=== PATIENT | female | born 1950 | race Caucasian/White ===

== ENCOUNTER 2018-07-25 22:30 | Emergency (ER) | payer MEDICARE, BC ==
--- NOTE | 2018-07-25 22:54 | NUR ---
1st call to triage, no answer.
--- NOTE | 2018-07-25 23:01 | NUR ---
CALLED FOR TRIAGE, NO ANSWER.
--- NOTE | 2018-07-25 23:23 | NUR ---
3RD CALL NO ANSWER. LWBT.
== END 2018-07-25 23:24 | disposition home or self-care (01) ==
LOC: ER 22:30
DX: Z53.21 Procedure and treatment not carried out due to patient leaving prior to being seen by health care provider (principal)